=== PATIENT | female | born 1995 | race Caucasian/White ===

== ENCOUNTER 2018-06-12 09:36 | Emergency (ER) | payer OTHER ==
[2018-06-12] MEDS ORDERED: ACETAMINOPHEN TAB 325 MG TAB PO STA (09:53)
--- NOTE | 2018-06-12 10:25 | ED ---
Abdominal Pain HPI - General Chief Complaint: Abdominal Pain Stated Complaint: poss infected cyst Time Seen by Provider: 06/12/18 09:49 Source: patient Mode of arrival: ambulatory Limitations: no limitations - History of Present Illness Initial Comments: 22-year-old female with history of ovarian cysts present today for chief complaint of left lower pelvic pain. Patient states she has had pain on and off for the past 3 days, however since 8 PM last night in the left lower pelvic region she states it feels similar to the cramping of periods. She states it woke her up in the middle the night from the pain last night. She denies any alleviating or aggravating factors. Patient states pain has decreased over the last few hours. Patient denies any vaginal bleeding, fever chills night sweats. Pt states she has had vaginal discharge that she feels in normal between periods since "as long as I can remember", denies concern for STI, history of chlamydia 3 years ago. Patient does admit to dysuria. Patient states that she also has been gassy. Denies vomiting or diarrhea, melena or hematochezia. Remaining ROS (-), patient denies any recent shortness of breath, chest pain, back pain, numbness or tingling, hematuria, constipation, headaches or visual changes, or any other complaints. Pt is unsure of . Upon arrival pt is ambulating without difficulty. No signs of acute distress. - Related Data Home Medications Medication Instructions Recorded Confirmed Dextroamphetamine/Amphetamine 10 mg PO QAM 06/12/18 06/12/18 [Adderall Xr] FLUoxetine HCL [PROzac] 10 mg PO DAILY 06/12/18 06/12/18 lamoTRIgine [LaMICtal] 100 mg PO DAILY 06/12/18 06/12/18 Previous Rx's Medication Instructions Recorded Doxycycline [Vibramycin] 100 mg PO BID 14 Days #28 capsule 06/12/18 Ondansetron Odt [Zofran Odt] 4 mg PO Q12HR PRN 14 Days #28 tab 06/12/18 metroNIDAZOLE [Flagyl] 500 mg PO BID 14 Days #28 tab 06/12/18 Allergies Allergy/AdvReac Type Severity Reaction Status Date / Time amoxicillin [From Augmentin] Allergy Rash/Hives Verified 06/12/18 10:02 clavulanic acid Allergy Rash/Hives Verified 06/12/18 10:02 [From Augmentin] Review of Systems ROS Statement: Those systems with pertinent positive or pertinent negative responses have been documented in the HPI. ROS Other: All systems not noted in ROS Statement are negative. Past Medical History Additional Past Medical History / Comment(s): ovarian cyst, borderline personality disorder, opositional defiant disorder History of Any Multi-Drug Resistant Organisms: None Reported Past Surgical History: No Surgical Hx Reported Past Psychological History: ADD/ADHD, Bipolar Smoking Status: Current some day smoker Past Alcohol Use History: Occasional Past Drug Use History: Marijuana General Exam - General Exam Comments Initial Comments: General: The patient is awake and alert, in no distress, and does not appear acutely ill. Eye: Pupils are equal, round and reactive to light, extra-ocular movements are intact. No nystagmus. There is normal conjunctiva bilaterally. No signs of icterus. Ears, nose, mouth and throat: There are moist mucous membranes and no oral lesions. Neck: The neck is supple, there is no tenderness or JVD. Cardiovascular: There is a regular rate and rhythm. No murmur, rub or gallop is appreciated. Respiratory: Lungs are clear to auscultation, respirations are non-labored, breath sounds are equal. No wheezes, stridor, rales, or rhonchi. Gastrointestinal: Soft, non-distended, mildly tender abdomen in the left lower pelvic region without masses or organomegaly noted. There is no rebound or guarding present. No CVA tenderness. Bowel sounds are unremarkable. Pelvic: Musculoskeletal: Normal ROM, no tenderness. Strength 5/5. Sensation intact. Pulses equal bilaterally 2+. Neurological: A&O x 3. CN II-XII intact, There are no obvious motor or sensory deficits. Coordination appears grossly intact. Speech is normal. Skin: Skin is warm and dry and no rashes or lesions are noted. Psychiatric: Cooperative, appropriate mood & affect, normal judgment. Limitations: no limitations Course Vital Signs 06/12/18 06/12/18 06/12/18 09:43 12:05 14:47 Temperature 98.2 F 98.1 F 98.2 F Pulse Rate 106 H 100 90 Respiratory 18 20 16 Rate Blood Pressure 110/71 115/78 118/87 O2 Sat by Pulse 98 99 98 Oximetry Medical Decision Making - Medical Decision Making 22-year-old male presenting for lower lower abdominal pain 2-3 days. Patient states she's had vaginal discharge for as long she can remember she denies any order, she denies any concern for STI. Patient does have history of chlamydia 3 years ago. Patient denies any pain with sex, nausea vomiting fever chills or night sweats. When pain increased throughout the evening patient presents emergency this morning for evaluation. Patient states since arrival pain has been subsiding. Abdominal exam revealed mild left lower quadrant tenderness. No rigidity no guarding. Pelvic exam revealed a discharge coming from the os, profuse discharge. No odor. No cervical motion or adnexal tenderness. No blood. Laboratory studies revealed no leukocytosis. Pt does not appear toxic. Lactic acid WNL. Blood cultures pending. X-ray revealed findings consistent with possible pyosalingitis vs hemorrhage. At this time given physical exam findings to profuse discharge from the os I feel this is due to PID. I discussed the case at time provider Dr. Lindsey who evaluated patient in person. He contacted acid polymerization operator OBGYN who recommended patient discharge, with doxycycline and metronidazole. Pt was given cefoxitine in the ER and initial dose of doxy. I discussed at length the avoidance of alcohol with these and metronidazole. Pt was provided zofran for nausea. Pt was discharged with outpatient f/u with Dr. Stewart. Pt discharged appearing well. Patient is aware of return parameters including developement of fever. - Lab Data Result diagrams: 06/12/18 10:44 06/12/18 10:44 Lab Results 06/12/18 06/12/18 06/12/18 Range/Units 10:44 10:44 10:44 WBC 7.2 (3.8-10.6) k/uL RBC 4.69 (3.80-5.40) m/uL Hgb 13.9 (11.4-16.0) gm/dL Hct 42.2 (34.0-46.0) % MCV 90.0 (80.0-100.0) fL MCH 29.6 (25.0-35.0) pg MCHC 32.9 (31.0-37.0) g/dL RDW 13.2 (11.5-15.5) % Plt Count 224 (150-450) k/uL Neutrophils % 84 % Lymphocytes % 8 % Monocytes % 7 % Eosinophils % 1 % Basophils % 0 % Neutrophils # 6.0 (1.3-7.7) k/uL Lymphocytes # 0.6 L (1.0-4.8) k/uL Monocytes # 0.5 (0-1.0) k/uL Eosinophils # 0.1 (0-0.7) k/uL Basophils # 0.0 (0-0.2) k/uL Sodium 139 (137-145) mmol/L Potassium 4.3 (3.5-5.1) mmol/L Chloride 105 (98-107) mmol/L Carbon Dioxide 26 (22-30) mmol/L Anion Gap 8 mmol/L BUN 13 (7-17) mg/dL Creatinine 0.65 (0.52-1.04) mg/dL Est GFR (CKD-EPI)AfAm >90 (>60 ml/min/1.73 sqM) Est GFR (CKD-EPI)NonAf >90 (>60 ml/min/1.73 sqM) Glucose 91 (74-99) mg/dL Plasma Lactic Acid Jaret (0.7-2.0) mmol/L Calcium 9.4 (8.4-10.2) mg/dL Urine Color Urine Appearance (Clear) Urine pH (5.0-8.0) Ur Specific [place] (1.001-1.035) Urine Protein (Negative) Urine Glucose (UA) (Negative) Urine Ketones (Negative) Urine Blood (Negative) Urine Nitrite (Negative) Urine Bilirubin (Negative) Urine Urobilinogen (<2.0) mg/dL Ur Leukocyte Esterase (Negative) Urine WBC (0-5) /hpf Ur Squamous Epith Cells (0-4) /hpf Urine Mucus (None) /hpf Urine HCG, Qual Not Detected (Not Detectd) Trichomonas Ag (Rapid) (Negative) 06/12/18 06/12/18 06/12/18 Range/Units 10:44 11:35 11:44 WBC (3.8-10.6) k/uL RBC (3.80-5.40) m/uL Hgb (11.4-16.0) gm/dL Hct (34.0-46.0) % MCV (80.0-100.0) fL MCH (25.0-35.0) pg MCHC (31.0-37.0) g/dL RDW (11.5-15.5) % Plt Count (150-450) k/uL Neutrophils % % Lymphocytes % % Monocytes % % Eosinophils % % Basophils % % Neutrophils # (1.3-7.7) k/uL Lymphocytes # (1.0-4.8) k/uL Monocytes # (0-1.0) k/uL Eosinophils # (0-0.7) k/uL Basophils # (0-0.2) k/uL Sodium (137-145) mmol/L Potassium (3.5-5.1) mmol/L Chloride (98-107) mmol/L Carbon Dioxide (22-30) mmol/L Anion Gap mmol/L BUN (7-17) mg/dL Creatinine (0.52-1.04) mg/dL Est GFR (CKD-EPI)AfAm (>60 ml/min/1.73 sqM) Est GFR (CKD-EPI)NonAf (>60 ml/min/1.73 sqM) Glucose (74-99) mg/dL Plasma Lactic Acid Jaret 0.5 L (0.7-2.0) mmol/L Calcium (8.4-10.2) mg/dL Urine Color Yellow Urine Appearance Clear (Clear) Urine pH 7.5 (5.0-8.0) Ur Specific [place] 1.030 (1.001-1.035) Urine Protein Trace H (Negative) Urine Glucose (UA) Negative (Negative) Urine Ketones Negative (Negative) Urine Blood Negative (Negative) Urine Nitrite Negative (Negative) Urine Bilirubin Negative (Negative) Urine Urobilinogen <2.0 (<2.0) mg/dL Ur Leukocyte Esterase Moderate H (Negative) Urine WBC 5 (0-5) /hpf Ur Squamous Epith Cells 4 (0-4) /hpf Urine Mucus Few H (None) /hpf Urine HCG, Qual (Not Detectd) Trichomonas Ag (Rapid) Negative (Negative) Disposition Clinical Impression: Pyosalpingitis, PID (acute pelvic inflammatory disease) Disposition: HOME SELF-CARE Condition: Good Additional Instructions: Please use medication as discussed. Please follow-up with OBGYN in 2-3 days. Please return to emergency room if the symptoms increase or worsen or for any other concerns. Prescriptions: metroNIDAZOLE [Flagyl] 500 mg PO BID 14 Days #28 tab Doxycycline [Vibramycin] 100 mg PO BID 14 Days #28 capsule Ondansetron Odt [Zofran Odt] 4 mg PO Q12HR PRN 14 Days #28 tab PRN Reason: Nausea Is patient prescribed a controlled substance at d/c from ED?: No Referrals: None,Stated [Primary Care Provider] - 1-2 days Farooq Stewart DO [Doctor of Osteopathic Medicine] - 1-2 days Time of Disposition: 14:29
[2018-06-12] MEDS ORDERED: DOXYCYCLINE 100 MG CAP PO STA (10:59)
--- NOTE | 2018-06-12 11:00 | US ---
EXAMINATION TYPE: US transvaginal DATE OF EXAM: 06/12/2018 COMPARISON: NONE CLINICAL HISTORY: Pain. LLQ pain TECHNIQUE: TV. Date of LMP: 05/21/2018 EXAM MEASUREMENTS: Uterus: 7.9 x 5.4 x 3.6 cm Endometrial Stripe: 0.5 cm Right Ovary: 3.1 x 2.8 x 2.3 cm Left Ovary: 3.9 x 2.2 x 2.6 cm 1. Uterus: Anteverted wnl 2. Endometrium: wnl 3. Right Ovary: wnl 4. Left Ovary: 1.6cm complex cyst seen, inferior to left ovary is tubular structure that appears to be filled within sludge like debris and has increased vascularity Spectral, color and waveform doppler imaging shows good arterial and venous flow within the ovaries ; there is no evidence for ovarian torsion. 5. Bilateral Adnexa: no additional findings within adnexas. 6. Posterior cul-de-sac: wnl IMPRESSION: Sonographic findings suggest hematosalpinx or pyosalpinx with concern for tubo-ovarian ab scess. Pelvic inflammatory disease should be considered. Findings discussed with the ordering ER prov rubina at 10:56 AM on 06/12/[address] Kendall.
[2018-06-12 11:08] LABS: Basophils % (A) 0 %; Eosinophils # (A) 0.1 k/uL (0-0.7); Eosinophils % (A) 1 %; HCT 42.2 % (34.0-46.0); HGB 13.9 gm/dL (11.4-16.0); Lymphocytes # (A) 0.6 k/uL (1.0-4.8); Lymphocytes % (A) 8 %; MCH 29.6 pg (25.0-35.0); MCHC 32.9 g/dL (31.0-37.0); Mean Platelet Volume 7.5; Monocytes # (A) 0.5 k/uL (0-1.0); Monocytes % (A) 7 %; Neutrophils % (A) 84 %; Platelet Count 224 k/uL (150-450); RBC 4.69 m/uL (3.80-5.40); RDW 13.2 % (11.5-15.5); WBC 7.2 k/uL (3.8-10.6)
[2018-06-12 11:14] LABS: Appearance,Urine Clear (Clear); Bilirubin,Urine Negative (Negative); Blood,Urine Negative (Negative); Color,Urine Yellow; Glucose,Urine (UA) Negative (Negative); Ketones,Urine Negative (Negative); Leukocyte Esterase,Urine Moderate (Negative); Mucus,Urine Few /hpf; Nitrite,Urine Negative (Negative); PH, Urine 7.5 (5.0-8.0); Protein,Urine Trace (Negative); Squamous Epithelial Cell,Urine 4 /hpf (0-4); Urobilinogen,Urine <2.0 mg/dL (<2.0); WBC,Urine 5 /hpf (0-5)
[2018-06-12 11:18] LABS: Anion Gap 8 mmol/L; Blood Urea Nitrogen 13 mg/dL (7-17); Calcium 9.4 mg/dL (8.4-10.2); Carbon Dioxide 26 mmol/L (22-30); Chloride 105 mmol/L (98-107); Glucose 91 mg/dL (74-99); Potassium 4.3 mmol/L (3.5-5.1); Sodium 139 mmol/L (137-145)
[2018-06-12] MEDS ORDERED: ONDANSETRON 4 MG/2 ML VIAL IVP STA (12:11)
[2018-06-12 14:48] VITALS: BP 118/87; PULSE 90; RESP 16; TEMP 98.2
[2018-06-13 16:33] LABS: N. gonorrhoeae,PCR Negative (Neg,Equiv); Neisseria Source Vagina
[2018-06-13 16:41] LABS: C. trachomatis,PCR Positive (Neg,Equiv); Chlamydia trachomatis Source Vagina
== END 2018-06-12 14:47 | disposition home or self-care (01) ==
LOC: EC 09:36
DX: N70.91 Salpingitis, unspecified (principal); N73.9 Female pelvic inflammatory disease, unspecified; F31.9 Bipolar disorder, unspecified; F17.200 Nicotine dependence, unspecified, uncomplicated; Z87.42 Personal history of other diseases of the female genital tract; Z79.899 Other long term (current) drug therapy; Z88.0 Allergy status to penicillin
CPT/HCPCS: 36415; 80048; 83605; 85025; 81001; 81025; 87040; 87808; 87491; 87591; 87070; 87205; 93975; 76830; 99284; 96365; 96375; J2405; J0694

== ENCOUNTER 2018-12-25 15:49 | Emergency (ER) | payer OTHER ==
[2018-12-25 15:53] VITALS: BP 116/71; PULSE 97; RESP 20; TEMP 98
--- NOTE | 2018-12-25 16:24 | ED ---
General Adult HPI - General Chief complaint: Upper Respiratory Infection Stated complaint: Cold Time Seen by Provider: 12/25/18 15:54 Source: patient, RN notes reviewed, old records reviewed Mode of arrival: ambulatory Limitations: no limitations - History of Present Illness Initial comments: 25-year-old female patient with no pertinent past presents ED chief complaint approximately one week of cough congestion. Patient also reports a sore throat. Denies any chance of being . Denies any other complaints. Systemic: Pt denies fatigue, fever/chills, rash. Pt denies weakness, night sweats, weight loss. Neuro: Pt denies headache, visual disturbances, syncope or pre-syncope. HEENT: Pt denies ocular discharge or irritation, otalgia, rhinorrhea, pharyngitis or notable lymphadenopathy. Cardiopulmonary: Pt denies chest pain, SOB, heart palpitations, dyspnea on exertion. Abdominal/GI: Pt denies abdominal pain, n/v/d. : Pt denies dysuria, burning w/ urination, frequency/urgency. Denies new onset urinary or bowel incontinence. MSK: Pt denies myalgia, loss of strength or function in extremities. Neuro: Pt denies new onset weakness, paresthesias. - Related Data Home Medications Medication Instructions Recorded Confirmed Dextroamphetamine/Amphetamine 10 mg PO QAM 06/12/18 06/12/18 [Adderall Xr] FLUoxetine HCL [PROzac] 10 mg PO DAILY 06/12/18 06/12/18 lamoTRIgine [LaMICtal] 100 mg PO DAILY 06/12/18 06/12/18 Previous Rx's Medication Instructions Recorded Doxycycline [Vibramycin] 100 mg PO BID 14 Days #28 capsule 06/12/18 Ondansetron Odt [Zofran Odt] 4 mg PO Q12HR PRN 14 Days #28 tab 06/12/18 metroNIDAZOLE [Flagyl] 500 mg PO BID 14 Days #28 tab 06/12/18 Allergies Allergy/AdvReac Type Severity Reaction Status Date / Time amoxicillin [From Augmentin] Allergy Rash/Hives Verified 12/25/18 15:53 clavulanic acid Allergy Rash/Hives Verified 12/25/18 15:53 [From Augmentin] Review of Systems ROS Statement: Those systems with pertinent positive or pertinent negative responses have been documented in the HPI. ROS Other: All systems not noted in ROS Statement are negative. Past Medical History Additional Past Medical History / Comment(s): ovarian cyst, borderline personality disorder, opositional defiant disorder History of Any Multi-Drug Resistant Organisms: None Reported Past Surgical History: No Surgical Hx Reported Past Psychological History: ADD/ADHD, Bipolar Smoking Status: Current some day smoker Past Alcohol Use History: Occasional Past Drug Use History: Marijuana General Exam - General Exam Comments Initial Comments: Constitutional: NAD, AOX3, Pt has pleasant affect. HEENT: NC/AT, trachea midline, neck supple, no lymphadenopathy. Posterior ph arynx non erythematous, without exudates. External ears appear normal, without discharge. Mucous membranes moist. Eyes PERRLA, EOM intact. There is no scleral icterus. No pallor noted. Cardiopulmonary: RRR, no murmurs, rubs or gallops, no JVD noted. Lungs CTAB in anterior and posterior oleary. No peripheral edema. Abdominal exam: Abdomen soft and non-distended. Abdomen non-tender to palpation in all 4 quadrants. Bowel sounds active in LLQ. No hepatosplenomegaly. No ecchymosis Neuro: CN II-XII intact. No nuchal rigidity. No raccon eyes, no thapa sign, no hemotympanum. No cervical spinal tenderness. MSK: No posterior calf tenderness bilaterally, homans sign negative bilaterally. Posterior tibialis and radial pulse +2 bilaterally. Sensation intact in upper and lower extremities. Full active ROM in upper and lower extremities, 5/5 stregnth. Limitations: no limitations Course Vital Signs 12/25/18 15:51 Temperature 98.0 F Pulse Rate 97 Respiratory 20 Rate Blood Pressure 116/71 O2 Sat by Pulse 98 Oximetry Medical Decision Making - Medical Decision Making 23-year-old female patient presented to ED chief complaint of sore throat, cough congestion. Patient vital signs stable, afebrile. Physical exam did not display acute pathology. CXR negative. Group A strep negative. Patient reports that she mostly just wants work note. Patient will be discharged, follow-up with primary care. Return to ER if condition worsens. Case dsicussed with Dr. Villafana. - Lab Data Lab Results 12/25/18 Range/Units 15:45 Group A Strep Rapid Negative (Negative) Disposition Clinical Impression: Cough, Sore throat, Viral syndrome Disposition: HOME SELF-CARE Condition: Stable Instructions (If sedation given, give patient instructions): Upper Respiratory Infection (ED), Viral Syndrome (ED) Additional Instructions: Follow up with primary care provider tomorrow. Use tylenol, Motrin as needed. Return to ER if condition worsens. Is patient prescribed a controlled substance at d/c from ED?: No Referrals: None,Stated [Primary Care Provider] - 1-2 days
--- NOTE | 2018-12-25 16:33 | XR ---
EXAMINATION TYPE: XR chest 2V DATE OF EXAM: 12/25/2018 COMPARISON: None HISTORY: 23-year-old female with cough TECHNIQUE: PA and lateral views FINDINGS: The cardiomediastinal silhouette, aorta, and pulmonary vasculature are within normal limits. Lungs an d pleural spaces are clear. Dextroconvex scoliosis centered along the mid thoracic spine. IMPRESSION: No focal infiltrate to suggest pneumonia.
== END 2018-12-25 16:51 | disposition home or self-care (01) ==
LOC: EC 15:49
DX: B34.9 Viral infection, unspecified (principal); F31.9 Bipolar disorder, unspecified; F90.9 Attention-deficit hyperactivity disorder, unspecified type; F91.3 Oppositional defiant disorder; F17.200 Nicotine dependence, unspecified, uncomplicated; Z88.0 Allergy status to penicillin; Z79.899 Other long term (current) drug therapy
CPT/HCPCS: 71046; 87081; 87430; 99284